=== PATIENT | female | born 1950 ===

== ENCOUNTER 2017-02-24 08:37 | Day surgery (SDC) | payer MEDICARE ==
[2016-05-21 12:40] VITALS: BMI 24.1
[2017-02-24] MEDS ORDERED: Lactated Ringer's 1,000 ML IV ONE (09:17)
[2017-02-24 09:36] VITALS: O2SAT 99
[2017-02-24] MEDS ORDERED: Propofol 10 mg/ml Inj (20 ML) ONE (10:22)
[2017-02-24] MEDS ORDERED: Lidocaine 2% MPF (5 ml) Inj ONE (10:23)
[2017-02-24 11:22] VITALS: TEMP 97
[2017-02-24 11:31] VITALS: BP 120/64; PULSE 70; RESP 20
== END 2017-02-24 12:20 | disposition home or self-care (01) ==
LOC: H.ENDO 08:37
PROVIDERS: ATTEND Internal Medicine Gastroenterology
DX: Z12.11 Encounter for screening for malignant neoplasm of colon (principal); I10 Essential (primary) hypertension; K64.1 Second degree hemorrhoids; K62.1 Rectal polyp
CPT/HCPCS: 45385; 88305; J2704; J7120

== ENCOUNTER 2017-09-01 09:17 | Day surgery (SDC) | payer OTHER ==
[2016-05-21 12:40] VITALS: BMI 24.1
[2017-09-01] MEDS ORDERED: Lactated Ringer's 500 ML IV ONE (09:58)
[2017-09-01] MEDS ORDERED: Propofol 10 mg/ml Inj (20 ML) ONE (10:49)
[2017-09-01 11:20] VITALS: TEMP 97
[2017-09-01 11:29] VITALS: BP 110/60; PULSE 56; RESP 18; O2SAT 98
== END 2017-09-01 11:42 | disposition home or self-care (01) ==
LOC: H.ENDO 09:17
PROVIDERS: ATTEND Internal Medicine Gastroenterology
DX: Z12.11 Encounter for screening for malignant neoplasm of colon (principal); K64.0 First degree hemorrhoids; Z86.010 Personal history of colon polyps; I10 Essential (primary) hypertension; Z88.6 Allergy status to analgesic agent; Z80.49 Family history of malignant neoplasm of other genital organs; Z80.9 Family history of malignant neoplasm, unspecified
CPT/HCPCS: 45378; J2001; J2704; J7120